=== PATIENT | male | born 1985 | race Caucasian/White ===

== ENCOUNTER 2020-10-19 17:36 | Emergency (ER) | payer OTHER ==
--- OUTSIDE RECORDS SUMMARY | 2020-10-19 17:38 | XMS REPORT | Continuity of Care Document ---
:1985 Author Organization [facility] t Address [address] [place] [address] [address] [place] [address] Care Team Providers Name Role Phone Luzma Villarreal Primary Care Physician Therapy, Clc Covid Infusion Attending Clinician Unavailable Rossy JOSHI, H Attending Clinician Only, Db Test Attending Clinician Unavailable Elsi [employer] Attending Clinician Doctor Unassigned, Name Attending Clinician Unavailable Payers Payer Name Policy Type Policy Number Effective Date Expiration Date S ource Problems This patient has no known problems. Allergies, Adverse Reactions, Alerts Allergy Allergy Status Severity Reaction(s) Onset Inactive Treating Comm ents Source Name Type Date Date Clinician Aspirin Propensi Active Anaphylaxis 2019-02 Un noemi ty to 03-08 ity of adverse 00:00: [place] reaction 00 Medical s Branch Social History Social Habit Start Date Stop Date Quantity Comments Source Exposure to Not sure University SARS-CoV-2 [facility] (event) Branch History of Chews Tobacco University of tobacco use [facility] Tobacco use and 2020-01-07 2020-01-07 Current user Univers ity of exposure 00:00:00 00:00:00 [facility] Alcohol intake 2020-01-07 2020-01-07 Current drinker Unive rsity of 00:00:00 00:00:00 of alcohol [facility] (finding) Branch Sex Assigned At [birth year] Universit y of 00:00:00 00:00:00 [facility] Smoking Status Start Date Stop Date Source Never smoker [facility] [place] [facility] [facility] Medications Ordered Filled Start Stop Current Ordering Indication Dosage Frequency Signature Comments Components Source Medication Medication Date Date Medication? Clinician (SIG) Name Name gracemab 2020-0 2021- No [id number] 1200mg 1,200 mg, Univers -imdevimab 10-19 IV ity of 1200 mg in 18:00: 17:00 Infusion, [place] 60 mL NS 00 :00 ONCE, Medical MINI-BAG Administer Branc h over 20 Minutes, 10/19/20 at 1300, For 1 dose
Ad construction crew member as an IV infusion via pump or gravity through an intravenou s line containing a sterile, in-line or add-on 0.2-micron polyethers ulfone (PES) filter. Stable 36 hours refrigerat ed; 4 hours at room temperatur e.
Immunizations Ordered Filled Immunization Date Status Comments Sourc e Immunization Name Name Twinrix (hep a/hep 2017-12-15 Completed Univer sity of b) 00:00:00 [facility] Twinrix (hep a/hep 2017-12-15 Completed Univer sity of b) 00:00:00 [facility] Twinrix (hep a/hep 2017-12-15 Completed Univer sity of b) 00:00:00 [facility] Twinrix (hep a/hep 2017-12-15 Completed Univer sity of b) 00:00:00 [facility] Twinrix (hep a/hep 2017-11-08 Completed Univer sity of b) 00:00:00 [facility] Twinrix (hep a/hep 2017-11-08 Completed Univer sity of b) 00:00:00 [facility] Twinrix (hep a/hep 2017-11-08 Completed Univer sity of b) 00:00:00 [facility] Twinrix (hep a/hep 2017-11-08 Completed Univer sity of b) 00:00:00 [facility] TDAP 2014-12-15 Completed [facility] 00:00:00 [facility] TDAP 2014-12-15 Completed [facility] 00:00:00 [facility] TDAP 2014-12-15 Completed [facility] 00:00:00 [facility] TDAP 2014-12-15 Completed [facility] 00:00:00 [facility] Vital Signs Vital Name Observation Time Observation Value Comments Source Systolic blood 2020-10-19 18:12:00 109 mm[Hg] Univer sity of pressure [facility] Diastolic blood 2020-10-19 18:12:00 74 mm[Hg] Unive rsity of pressure [facility] Heart rate 2020-10-19 18:12:00 71 /min [facility] Body temperature 2020-10-19 17:54:00 36.72 [facility] Respiratory rate 2020-10-19 17:54:00 16 /min [facility] Oxygen saturation in 2020-10-19 17:54:00 97 /min [facility] Arterial blood by [facility] Pulse oximetry [place] Body height 2020-10-19 16:26:00 188 cm [facility] Body weight 2020-10-19 16:26:00 145.151 kg [facility] BMI 2020-10-19 16:26:00 41.09 kg/m2 [facility] Procedures This patient has no known procedures. Encounters Start End Encounter Admission Attending Care Care Encounter Source Date/Time Date/Time Type Type Clinicians Facility Department ID 2020-10-19 2020-10-19 Nurse Therapy, Clc Covid Infusion [facility] [id number] Univers 11:22:13 12:22:13 Visit [facility] [id number] [id number] [phone] [facility] [address] 2020-10-18 2020-10-18 Telephone Only, Ang [facility] [id number] Univers 00:00:00 00:00:00 Db Test Health [id number] it y of [place] [id number] Dc as Bg?Blea [id number] [facility] [address] 2020-10-17 2020-10-17 Laboratory Only, Ang Db Test [facility] 1.2.8 [id number] Univers 10:40:19 11:00:19 Only [facility] [id number] ity of [place] [id number] Dc as Bg?Blea [id number] [facility] [address] Medical Office Building 2020-10-17 2020-10-17 Letter Doctor ALLEN [id number] Univers 00:00:00 00:00:00 (Out) Unassigned, ABIDA [id number] [place] [facility] [id number] Dc as [phone] [place] [address] Branch Results This patient has no known results.
--- NOTE | 2020-10-19 18:03 | ER ---
Nurse's Notes [facility] Name: Aftab Jernigan Age: 35 yrs Sex: Male : 1985 Arrival Date: 10/19/2020 Time: 17:38 Bed Waiting [facility] MD: Diagnosis: ED Course: 10/19 17:38 Patient arrived in ED. ds1 Administered Medications: No medications were administered Outcome: 18:02 Patient left the ED. ll1 Signatures: Solange Kay ds1 Akira Clark, RN RN ll1
== END 2020-10-19 18:02 | disposition left against medical advice (07) ==
LOC: ER 17:36
DX: Z02.9 Encounter for administrative examinations, unspecified (principal)

== ENCOUNTER 2023-10-18 14:37 | Emergency (ER) | payer OTHER ==
[2023-10-18 15:04] LABS: Absolute Eosinophils 0.1 K/uL (0-0.5); Absolute Lymphocytes (CBC) 1.7 K/uL (0.7-4.9); Absolute Monocytes 0.4 K/uL (0.1-1.3); Absolute Neutrophil 2.4 K/uL (1.8-8.0); Basophils % 0.8 % (0-1.3); Hematocrit 45.9 % (39.6-49.0); Hemoglobin 15.5 g/dL (13.6-17.9); Lymphocytes % 36.8 % (15.3-44.8); MCH 29.4 pg (27.0-35.0); MCHC 33.9 g/dL (32.0-36.0); MCV 86.7 fL (80-100); MPV 9.4 fL (7.6-11.3); Monocytes % 8.3 % (3.3-12.3); Neutrophils % 51.1 % (41.7-73.7); Nucleated Red Blood Cells % 0.2 % (0-0); Platelets 168 thou/uL (152-406); Red Cell Distribution Width 13.5 % (12.1-15.2)
[2023-10-18 15:22] LABS: Albumin 3.9 g/dL (3.4-5.0); Albumin/Globulin Ratio 1.2 (1.1-1.8); Anion Gap 7.9 mEq/L (5.0-15.0); Bilirubin Total 0.6 mg/dL (0.2-1.0); Globulin 3.3 g/dL (2.3-3.5); Potassium 3.9 mEq/L (3.5-5.1); Protein, Total 7.2 g/dL (6.4-8.2); Troponin High Sensitivity 5.7 pg/mL (<58.9)
--- NOTE | 2023-10-18 16:53 | EDPHYS ---
Physician Documentation [facility] Name: Aftab Jernigan Age: 38 yrs Sex: Male : 1985 Arrival Date: 10/18/2023 Time: 14:37 Bed 10 Private MD: ED Physician Giselle Zuleta HPI: 10/17 15:30 This 38 yrs old Male presents to ER via Ambulatory with complaints of Abnormal Lab sd2 Results - EKG. 15:30 38-year-old male presents with chief complaint of left-sided chest pain. He reports it sd2 has been ongoing for the past week and comes and goes. It is exacerbated by certain movements. He denies any associated shortness of breath, nausea, vomiting, diaphoresis, calf pain or swelling or radiation of the pain. No recent travel. No family history of heart attacks or blood clots. Patient reports he was seen at [facility] who sent him to the ER due to an abnormal EKG that he presented with him.. Historical: - Allergies: 14:45 Aspirin; kc6 - PMHx: 14:45 Hypercholesterolemia; kc6 - PSHx: 14:45 None; kc6 - Immunization history:: Client reports having NOT received the Covid vaccine. Flu vaccine is not up to date. - Infectious Disease History:: Denies. - Social history:: Smoking status: Patient reports use of chewing tobacco. ROS: 15:30 Constitutional: Negative for fever, chills, and weight loss, Eyes: Negative for injury, sd2 pain, redness, and discharge, 15:30 Respiratory: Negative for shortness of breath, cough, wheezing. Abdomen/GI: Negative for abdominal pain, nausea, vomiting, diarrhea. MS/Extremity: Negative for injury and deformity, Skin: Negative for injury, rash, and discoloration, Neuro: Negative for headache, numbness and tingling. 15:30 Cardiovascular: Positive for chest pain, Negative for edema, palpitations, Exam: 15:30 Constitutional: This is a well developed, well nourished patient who is awake, alert, sd2 and in no acute distress. Head/Face: Normocephalic, atraumatic. Eyes: EOMI, normal conjunctiva bilaterally Chest/axilla: Normal chest wall appearance and motion. Nontender with no deformity. Cardiovascular: Regular rate and rhythm with a normal S1 and S2. No gallops, murmurs, or rubs. 2+ distal pulses. Respiratory: Lungs have equal breath sounds bilaterally, clear to auscultation and percussion. No rales, rhonchi or wheezes noted. No increased work of breathing, no retractions or nasal flaring. Abdomen/GI: Soft, non-tender, with normal bowel sounds. No guarding or rebound. No evidence of tenderness throughout. Skin: Warm, dry with normal turgor. Normal color with no rashes, no lesions, and no evidence of cellulitis. MS/ Extremity: Pulses equal, no cyanosis. Neurovascular intact. Full, normal range of motion. Psych: Awake, alert, with orientation to person, place and time. Behavior, mood, and affect are within normal limits. 15:30 ECG was reviewed by the Attending Physician. NSR, rate 81, no STEMI criteria, TWI in lead III Vital Signs: 14:43 BP 144 / 86; Pulse 84; Resp 17; Temp 97(TE); Pulse Ox 96% on R/A; Weight 140.61 kg (R); kc6 Height 6 ft. 2 in. (R); Pain 0/10; 15:30 BP 136 / 81; Pulse 82; Resp 15; Pulse Ox 97% ; me1 16:02 BP 134 / 66; Pulse 78; Resp 16; Pulse Ox 97% on R/A; me1 17:00 BP 131 / 72; Pulse 77; Resp 15; Temp 98.2; Pulse Ox 98% ; me1 14:43 Body Mass Index 39.80 (140.61 kg, 187.96 cm) [facility] 14:43 Pain Scale: Adult [facility] MDM: 14:44 Patient medically screened. sd2 15:30 Differential Diagnosis ACS, DVT/PE, dissection, MSK, costochondritis among others. Data sd2 reviewed: vital signs, nurses notes, lab test result(s), EKG, radiologic studies. I considered the following discharge prescriptions or medication management in the emergency department ASA not given due to allergy. Care significantly affected by the following chronic conditions: Hypertriglyceridemia. 15:39 Counseling: I had a detailed discussion with the patient and/or guardian regarding the sd2 historical points, exam findings, and any diagnostic results supporting the discharge/admit diagnosis, lab results, radiology results, the need for outpatient follow up. ED course: Labs and imaging reviewed and grossly WNCL. Trop neg. EKG with no ischemic changes. Pt advised of results and need for follow up with PCP for further evaluation outpatient. Pt comfortable with plan for dc and outpatient follow up and verbalizes understanding of strict return precautions.. 10/17 14:46 Order name: CBC with Diff; Complete Time: 15:33 10/17 14:46 Order name: CMP; Complete Time: 15:33 10/17 14:46 Order name: Troponin High Sensitivity; Complete Time: 15:33 10/17 14:46 Order name: BNP; Complete Time: 15:33 10/17 15:41 Order name: D-Dimer; Complete Time: 16:50 10/17 14:46 Order name: XRAY Chest (1 view) 10/17 14:46 Order name: EKG - Nurse/Tech; Complete Time: 15:22 sd2 Administered Medications: No medications were administered Disposition Summary: 10/18/23 16:51 Discharge Ordered Problem: new sd2 Symptoms: have improved sd2 Condition: Stable sd2 Diagnosis - Chest pain, unspecified sd2 Followup: sd2 - With: Private Physician - When: 2 - 3 days - Reason: Recheck today's complaints, Continuance of care, Re-evaluation by your physician Discharge Instructions: - Discharge Summary Sheet sd2 - Nonspecific Chest Pain, Adult sd2 Forms: - Medication Reconciliation Form sd2 - Antibiotic Education sd2 - Prescription Opioid Use sd2 - Patient Portal Instructions sd2 - Leadership Thank You Letter sd2 Signatures: Dispatcher [employer] Giselle Lara MD MD sd2 Elizabet Hartmann RN RN kc6
--- NOTE | 2023-10-18 16:53 | ER ---
Nurse's Notes [facility] Name: Aftab Jernigan Age: 38 yrs Sex: Male : 1985 Arrival Date: 10/18/2023 Time: 14:37 Bed 10 Private MD: Diagnosis: Chest pain, unspecified Presentation: 10/17 14:43 Chief complaint: Patient states: intermittent left sided chest pain x1 week. states he kc6 went to [facility] today and they referred him here for an abnormal EKG. Coronavirus screen: At this time, the client does not indicate any symptoms associated with coronavirus-19. Ebola Screen: No symptoms or risks identified at this time. Initial Sepsis Screen: Does the patient meet any 2 criteria? No. Patient's initial sepsis screen is negative. Does the patient have a suspected source of infection? No. Patient's initial sepsis screen is negative. Risk Assessment: Do you want to hurt yourself or someone else? Patient reports no desire to harm self or others. Onset of symptoms was October 18, 2023. 14:43 Method Of Arrival: Ambulatory [facility] 14:43 Acuity: SYL 3 kc6 Historical: - Allergies: 14:45 Aspirin; kc6 - PMHx: 14:45 Hypercholesterolemia; kc6 - PSHx: 14:45 None; kc6 - Immunization history:: Client reports having NOT received the Covid vaccine. Flu vaccine is not up to date. - Infectious Disease History:: Denies. - Social history:: Smoking status: Patient reports use of chewing tobacco. Screenin:00 [facility] ED Fall Risk Assessment (Adult) History of falling in the last 3 months, me1 including since admission No falls in past 3 months (0 pts) Confusion or Disorientation No (0 pts) Intoxicated or Sedated No (0 pts) Impaired Gait No (0 pts) Mobility Assist Device Used No (0 pt) Altered Elimination No (0 pt) Score/Fall Risk Level 0 - 2 = Low Risk Maintained a safe environment, Provided non-skid footwear, Hourly rounding (assess needs \T\ fall precautionary measures) done. Abuse screen: Denies threats or abuse. Nutritional screening: No deficits noted. Tuberculosis screening: No symptoms or risk factors identified. Assessment: 15:00 General: Appears comfortable, well groomed, well developed, well nourished, Behavior is me1 calm, cooperative, appropriate for age, Reports intermittent left sided chest pain x1 week. states he went to [facility] today and they referred him here for an abnormal EKG. Pain: Complains of pain in anterior aspect of left upper chest Pain does not radiate. Pain currently is 2 out of 10 on a pain scale. Quality of pain is described as dull, Is continuous. Neuro: Level of Consciousness is awake, alert, obeys commands, Oriented to person, place, time, situation, Appropriate for age. Cardiovascular: Reports chest pain, Denies diaphoresis, lightheadedness, nausea, shortness of breath, Patient's skin is warm and dry. Respiratory: Airway is patent Respiratory effort is even, unlabored, Respiratory pattern is regular, symmetrical. GI: No signs and/or symptoms were reported involving the gastrointestinal system. : No signs and/or symptoms were reported regarding the genitourinary system. EENT: No signs and/or symptoms were reported regarding the EENT system. Derm: Skin is intact, is healthy with good turgor, Skin is pink, warm \T\ dry. Musculoskeletal: No signs and/or symptoms reported regarding the musculoskeletal system. Vital Signs: 14:43 BP 144 / 86; Pulse 84; Resp 17; Temp 97(TE); Pulse Ox 96% on R/A; Weight 140.61 kg (R); kc6 Height 6 ft. 2 in. (R); Pain 0/10; 15:30 BP 136 / 81; Pulse 82; Resp 15; Pulse Ox 97% ; me1 16:02 BP 134 / 66; Pulse 78; Resp 16; Pulse Ox 97% on R/A; me1 17:00 BP 131 / 72; Pulse 77; Resp 15; Temp 98.2; Pulse Ox 98% ; me1 14:43 Body Mass Index 39.80 (140.61 kg, 187.96 cm) kc6 14:43 Pain Scale: Adult kc6 ED Course: 14:39 Patient arrived in ED. mg5 14:44 Giselle Zuleta MD is Attending Physician. sd2 14:45 Triage completed. kc6 14:45 Arm band placed on. kc6 14:47 Krystina Rebolledo, SOFI is Primary Nurse. me1 14:55 Initial lab(s) drawn, by me, sent to lab. Inserted saline lock: 22 gauge in right me1 antecubital area, using aseptic technique. Blood collected. Flushed with 10 mL NS. 14:56 BNP Sent. co1 14:56 Troponin High Sensitivity Sent. me1 14:56 CMP Sent. me1 14:56 CBC with Diff Sent. me1 15:00 Patient has correct armband on for positive identification. Bed in low position. [place] [facility] [place] in reach. Side rails up X 1. Provided Education on: POC. Verbalized understanding. . Client placed on continuous cardiac and pulse oximetry monitoring. NIBP monitoring applied. bill clerk on. Pulse ox on. NIBP on. 15:00 No provider procedures requiring assistance completed. co1 15:10 XRAY Chest (1 view) In Process Unspecified. [facility] 15:22 EKG done, by ED staff, reviewed by Giselle Zuleta MD. me1 16:09 D-Dimer Sent. me1 16:09 by co, sent to lab. co1 17:00 IV discontinued, intact, bleeding controlled, No redness/swelling at site. Pressure co1 dressing applied. Administered Medications: No medications were administered Medication: 15:00 VIS not applicable for this client. [facility] [place] Outcome: 16:51 Discharge ordered by . mo2 17:00 [place] to [place]ulatory, [facility] [place] 17:01 Condition: stable [facility] [place] 17:01 Discharge instructions given to patient, Instructed on discharge instructions, follow up and referral plans. Demonstrated understanding of instructions, follow-up care, 17:22 Patient left the ED. [facility] [place] [place] Signatures: Dispatcher [employer] Giselle Navarrete MD MD sd2 Elizabet Hartmann RN RN kc6 Krystina Rebolledo RN RN me1 Shantel Du mg5 Corrections: (The following items were deleted from the chart) 15:00 14:43 Chief complaint: Patient states: intermittent left sided chest pain x1 week. me1 states he went to [facility] today and they referred him here for an abnormal EKG minerva
[2023-10-18 17:42] VITALS: BP 131/72; TEMP 98.2; O2SAT 98
--- NOTE | 2023-10-18 18:15 | RAD REPORT ---
EXAM DESCRIPTION: [place] Single View10/18/2023 3:08 pm CLINICAL HISTORY: Chest pain COMPARISON: none FINDINGS: The lungs appear clear of acute infiltrate. The heart is normal size Due to technical issues the exam could not be dictated until now. A preliminary report was given to teagan [facility] emergency room IMPRESSION: No acute abnormalities displayed
--- NOTE | 2023-10-20 14:11 | EKG ---
Test Date: 2023-10-18 Test Time: 15:18:02 Analysis Director: MEASUREMENT RESULTS: Intervals: Rate: 81 ME: 146 QRSD: 108 QT: 386 QTc: 448 [place]: P: 41 ME: 146 QRS: 79 T: 23 INTERPRETIVE STATEMENTS: Normal sinus rhythm Normal ECG No previous ECG available for comparison Electronically Signed On 10-20-23 14:07:58 CDT by Clinton June
== END 2023-10-18 17:22 | disposition home or self-care (01) ==
LOC: ER 14:37
DX: R07.9 Chest pain, unspecified (principal); E78.00 Pure hypercholesterolemia, unspecified; F17.220 Nicotine dependence, chewing tobacco, uncomplicated
CPT/HCPCS: 36415; 71045; 80053; 83880; 84484; 85025; 85379; 93005; 99284